=== PATIENT | male | born 1945 | race African-American/Black ===

== ENCOUNTER 2018-06-08 07:31 | Inpatient (IN) | payer MEDICARE, MEDICAID ==
[~2018-06-08] VITALS: Ht 172.7 cm; Wt 84.8 kg
[~2018-06-08 07:31] MED LIST: AMLO10TA80 PO; ATOR20TA65 PO
[2018-06-08] MEDS ORDERED: LACTATED RINGERS 1,000 ML IV SCH (11:15)
[2018-06-08] MEDS ORDERED: PROPOFOL 200MG/20ML VIAL IV ONE (12:29)
[2018-06-08] MEDS ORDERED: GLYCOPYRROLATE 0.2 MG/ML 2ML VIAL ONE (12:29)
[2018-06-08] MEDS ORDERED: SUCCINYLCHOLINE CHLORIDE 200MG/10ML IV ONE (12:29)
[2018-06-08] MEDS ORDERED: LIDOCAINE HCL/PF 1% 10 MG/ML 5ML VIAL ONE (12:29)
[2018-06-08] MEDS ORDERED: ONDANSETRON HCL 4MG/2ML INJ ONE (12:29)
[2018-06-08] MEDS ORDERED: MIDAZOLAM HCL 2 MG/2 ML VIAL ONE (12:29)
[2018-06-08] MEDS ORDERED: FENTANYL CITRATE/PF 50MCG/ML 2ML VIAL ONE ×2 (12:29→13:00)
[2018-06-08] MEDS ORDERED: METOCLOPRAMIDE HCL 10MG/2ML VIAL ONE (12:29)
[2018-06-08] MEDS ORDERED: HYDROCODONE/ACETAMINOPHEN 10/325MG TABLET PO PRN (13:30)
[2018-06-08] MEDS ORDERED: MAGNESIUM HYDROXIDE 400MG/5ML 30ML UDC PO PRN (13:30)
[2018-06-08] MEDS ORDERED: HYDROCODONE/ACETAMINOPHEN 5/325MG TABLET PO PRN (13:30)
[2018-06-08] MEDS ORDERED: LORAZEPAM 1MG TABLET PO PRN (13:30)
[2018-06-08] MEDS ORDERED: CEFAZOLIN SODIUM 1000MG/VIAL IV SCH (14:00)
[2018-06-08 21:37] VITALS: BP 112/58
[2018-06-09] VITALS: BP 102/48
[2018-06-09] MEDS: CEFAZOLIN 1000MG PREMIX 50 ML IV SCH ×2 (00:26→09:14)
[2018-06-09 04:00] VITALS: BP 102/47
[2018-06-09 06:28] LABS: BASOPHILS % 0.2 % (0.0-2.0); EOSINOPHILS % 0.7 % (0.0-5.0); HEMATOCRIT. 32.9 % (42.0-52.0); LYMPHOCYTES % 16.3 % (20.0-50.0); MEAN CORPUSCULAR HEMOGLOBIN 30.8 pg (28.0-32.0); MEAN CORPUSCULAR VOLUME 92.5 fL (80.0-94.0); MEAN PLATELET VOLUME 7.4 fl (7.4-10.4); MONOCYTES % 7.1 % (2.0-8.0); NEUTROPHILS % 75.7 % (40.0-76.0); PLATELET 207 x1000/uL (130-400); RED BLOOD CELL COUNT 3.55 mill/uL (4.7-6.1); RED CELL DISTRIBUTION WIDTH 15.7 % (11.6-14.6)
[2018-06-09 06:51] LABS: CHLORIDE 107 mEq/L (98-107)
[2018-06-09 08:00] VITALS: BP 92/52
[2018-06-09] MEDS ORDERED: AMLODIPINE 10MG TABLET PO SCH (09:00)
[2018-06-09] MEDS ORDERED: LEVOFLOXACIN 500MG TABLET PO SCH (11:00)
[2018-06-09] MEDS ORDERED: LEVOFLOXACIN 500MG TABLET PO NR (11:00)
[2018-06-09] MEDS ORDERED: ACETAMINOPHEN 325MG TABLET PO PRN (12:45)
[2018-06-09 20:00] VITALS: BP 78/60
[2018-06-10] VITALS: BP 106/39
[2018-06-10 04:00] VITALS: BP 125/46
[2018-06-10 07:59] LABS: BASOPHILS % 0.1 % (0.0-2.0); EOSINOPHILS % 1.5 % (0.0-5.0); HEMATOCRIT. 34.8 % (42.0-52.0); HEMOGLOBIN. 11.3 g/dL (14.0-18.0); LYMPHOCYTES % 24.3 % (20.0-50.0); MEAN CORPUSCULAR HEMOGLOBIN 30.3 pg (28.0-32.0); MEAN CORPUSCULAR VOLUME 93.3 fL (80.0-94.0); MEAN PLATELET VOLUME 7.7 fl (7.4-10.4); MONOCYTES % 9.8 % (2.0-8.0); NEUTROPHILS % 64.3 % (40.0-76.0); PLATELET 185 x1000/uL (130-400); RED BLOOD CELL COUNT 3.73 mill/uL (4.7-6.1); RED CELL DISTRIBUTION WIDTH 15.9 % (11.6-14.6)
[2018-06-10 08:21] VITALS: BP 129/55
[2018-06-10 09:50] LABS: CHLORIDE 105 mEq/L (98-107)
[2018-06-10 09:51] VITALS: BP 121/72
== END 2018-06-10 10:58 | disposition home or self-care (01) | DRG 713 ==
LOC: OR 07:31 → 6WST 13:22
PROVIDERS: ADMIT Urology; ATTEND Urology
PROC: 0VT08ZZ Resection of Prostate, Via Natural or Artificial Opening Endoscopic (ICD-10-PCS; principal; 2018-06-08)
DX: N40.1 Benign prostatic hyperplasia with lower urinary tract symptoms (principal); N13.8 Other obstructive and reflux uropathy; J44.9 Chronic obstructive pulmonary disease, unspecified; I10 Essential (primary) hypertension; E78.00 Pure hypercholesterolemia, unspecified; M46.90 Unspecified inflammatory spondylopathy, site unspecified; N32.89 Other specified disorders of bladder; I48.91 Unspecified atrial fibrillation; I49.1 Atrial premature depolarization; Z87.891 Personal history of nicotine dependence; Z95.1 Presence of aortocoronary bypass graft
CPT/HCPCS: 36415; 71045; 80048; 83735; 88305; 93005; J0330; J0690; J2250; J2405; J2704; J2765; J3010; J3490; J7040

== ENCOUNTER → 2019-12-20 | Outpatient (CLI) | payer MEDICARE, MEDICAID | END | disposition home or self-care (01) | LOC: MRI 10:23 | PROVIDERS: ATTEND Neurological Surgery | DX: M47.812 Spondylosis without myelopathy or radiculopathy, cervical region (principal); M48.02 Spinal stenosis, cervical region; M48.03 Spinal stenosis, cervicothoracic region; G95.89 Other specified diseases of spinal cord; Z98.1 Arthrodesis status | CPT/HCPCS: 72141 ==

== ENCOUNTER 2020-03-21 14:41 | Inpatient (IN) | payer MEDICARE, MEDICAID ==
[~2020-03-21] VITALS: Ht 172.7 cm; Wt 83.0 kg
[2020-03-21] MEDS ORDERED: ACETAMINOPHEN 325MG TABLET PO STA (15:26)
[2020-03-21] MEDS ORDERED: SODIUM CHLORIDE 0.9% 1000ML BAG (SEPSIS BOLUS) IV ONE (15:45)
[2020-03-21] MEDS ORDERED: LEVOFLOXACIN 750MG PREMIX 150 ML IV ONE (15:45)
[2020-03-21 16:42] LABS: BASOPHILS % 0.2 % (0.0-2.0); EOSINOPHILS % 0.1 % (0.0-5.0); HEMATOCRIT. 39.3 % (42.0-52.0); HEMOGLOBIN. 12.8 g/dL (14.0-18.0); LYMPHOCYTES % 7.9 % (20.0-50.0); MEAN CORPUSCULAR HEMOGLOBIN 30.5 pg (28.0-32.0); MEAN CORPUSCULAR VOLUME 93.8 fL (80.0-94.0); MEAN PLATELET VOLUME 7.2 fl (7.4-10.4); MONOCYTES % 4.6 % (2.0-8.0); NEUTROPHILS % 87.2 % (40.0-76.0); PLATELET 226 x1000/uL (130-400); RED BLOOD CELL COUNT 4.19 mill/uL (4.7-6.1); RED CELL DISTRIBUTION WIDTH 17.5 % (11.6-14.6)
[2020-03-21 16:47] LABS: CHLORIDE 107 mEq/L (98-107)
[2020-03-21 18:42] LABS: CLARITY URINE CLEAR (CLEAR); COLOR URINE YELLOW (YELLOW); KETONES URINE NEGATIVE (NEGATIVE); LEUKOCYTE ESTERASE URINE 2+ (NEGATIVE); NITRITE URINE POSITIVE (NEGATIVE); OCCULT BLOOD URINE 1+ (NEGATIVE); PH URINE 5.5 (4.5-8.0); PROTEIN URINE TRACE (NEGATIVE); SPECIFIC GRAVITY URINE 1.019 (1.005-1.030); UROBILINOGEN URINE 0.2 E.U./dL (0.2-1.0)
[2020-03-21] MEDS ORDERED: SODIUM CHLORIDE 0.9% 500 ML IV ONE (21:00)
[2020-03-21 21:20] VITALS: BP 107/59
[2020-03-21 21:30] VITALS: BP 108/59
[2020-03-21] MEDS ORDERED: ACETAMINOPHEN 325MG TABLET PO PRN (22:00)
[2020-03-21] MEDS ORDERED: ONDANSETRON HCL 4MG/2ML INJ IV PRN (22:00)
[2020-03-21] MEDS ORDERED: CEFTRIAXONE 1 G PREMIX 50 ML IV SCH (22:00)
[2020-03-21] MEDS ORDERED: IPRATROPIUM/ALBUTEROL 0.5-3(2.5)MG/3ML NEB NEB PRN (22:00)
[2020-03-21] MEDS ORDERED: DOCUSATE SODIUM 100MG CAPSULE PO PRN (22:00)
[2020-03-21] MEDS ORDERED: MAGNESIUM/ALUMINUM HYDROXIDE/SIMETHICONE 30ML UDC PO PRN (22:00)
[2020-03-21] MEDS ORDERED: CLONIDINE 0.1MG TABLET PO PRN (22:00)
[2020-03-21] MEDS ORDERED: HYDROCODONE/ACETAMINOPHEN 5/325MG TABLET PO PRN (22:00)
[2020-03-21 23:48] LABS: *AMPHETAMINES SCREEN URINE NEGATIVE (NEGATIVE); *BARBITURATES SCREEN URINE NEGATIVE (NEGATIVE); *BENZODIAZEPINES SCREEN URINE NEGATIVE (NEGATIVE); *COCAINE SCREEN URINE NEGATIVE (NEGATIVE); METHADONE URINE SCREEN NEGATIVE (NEGATIVE); OPIATES URINE SCREEN NEGATIVE (NEGATIVE)
[2020-03-21 23:49] LABS: CANNABINOID URINE SCREEN NEGATIVE (NEGATIVE); PHENCYCLIDINE URINE SCREEN NEGATIVE (NEGATIVE)
[2020-03-22] VITALS: BP 138/73
[2020-03-22] MEDS: AZITHROMYCIN 500 MG in DEXT 5% WATER 250 ML IV SCH ×2 (00:03→22:00)
[2020-03-22 00:20] LABS: CHLORIDE 107 mEq/L (98-107)
[2020-03-22 00:29] LABS: CREATINE KINASE 297 IU/L (39-308)
[2020-03-22 00:32] LABS: CREATINE KINASE MB FRACTION 1.6 ng/mL (0.5-3.6)
[2020-03-22] MEDS ORDERED: ATOR10TA69 PO (01:14)
[2020-03-22] MEDS ORDERED: AMLO5TAB88 PO (01:14)
[2020-03-22 04:00] VITALS: BP 122/57
[2020-03-22 08:00] VITALS: BP 101/48
[2020-03-22] MEDS: CEFTRIAXONE 1,000 MG in DEXTROSE 5% WATER 50 ML IV SCH (09:11)
[2020-03-22] MEDS: ENOXAPARIN 40MG/0.4ML SYR SUBCUT SCH (09:11)
[2020-03-22 09:37] LABS: BASOPHILS % 0.4 % (0.0-2.0); EOSINOPHILS % 0.4 % (0.0-5.0); HEMATOCRIT. 35.5 % (42.0-52.0); HEMOGLOBIN. 11.6 g/dL (14.0-18.0); LYMPHOCYTES % 24.7 % (20.0-50.0); MEAN CORPUSCULAR HEMOGLOBIN 30.4 pg (28.0-32.0); MEAN CORPUSCULAR VOLUME 93.5 fL (80.0-94.0); MEAN PLATELET VOLUME 6.7 fl (7.4-10.4); MONOCYTES % 10.3 % (2.0-8.0); NEUTROPHILS % 64.2 % (40.0-76.0); PLATELET 189 x1000/uL (130-400)
[2020-03-22 09:52] LABS: LDL CHOLESTEROL 51 mg/dL (5-100)
[2020-03-22 09:55] LABS: CREATINE KINASE 332 IU/L (39-308); CREATINE KINASE MB FRACTION 1.6 ng/mL (0.5-3.6); HDL CHOLESTEROL 49 mg/dL (40-59)
[2020-03-22 12:00] VITALS: BP 95/50
[2020-03-22] MEDS: ALBUTEROL 6.7GM HFA INHALER ORI SCH ×2 (12:00→18:00)
[2020-03-22 16:30] VITALS: BP 130/52
[2020-03-22 20:15] VITALS: BP 114/40
[2020-03-23] VITALS: BP 115/59
[2020-03-23 04:00] VITALS: BP 126/70
[2020-03-23] MEDS: ALBUTEROL 6.7GM HFA INHALER ORI SCH ×4 (05:51→17:57)
[2020-03-23 08:00] VITALS: BP 108/63
[2020-03-23] MEDS: CEFTRIAXONE 1,000 MG in DEXTROSE 5% WATER 50 ML IV SCH (08:00)
[2020-03-23] MEDS: ENOXAPARIN 40MG/0.4ML SYR SUBCUT SCH (09:00)
[2020-03-23 12:00] VITALS: BP 127/52
[2020-03-23 16:00] VITALS: BP 124/55
[2020-03-23 19:48] VITALS: BP 115/61
[2020-03-23] MEDS: AZITHROMYCIN 500 MG in DEXT 5% WATER 250 ML IV SCH (22:51)
[2020-03-24 00:22] VITALS: BP 111/67
[2020-03-24] MEDS ORDERED: ALBUTEROL (0.083%) 2.5MG/3ML NEB HHN SCH (01:00)
[2020-03-24 03:56] VITALS: BP 106/58
[2020-03-24 06:27] LABS: BASOPHILS % 0.3 % (0.0-2.0); EOSINOPHILS % 2.7 % (0.0-5.0); HEMATOCRIT. 37.5 % (42.0-52.0); HEMOGLOBIN. 12.2 g/dL (14.0-18.0); LYMPHOCYTES % 28.1 % (20.0-50.0); MEAN CORPUSCULAR HEMOGLOBIN 30.3 pg (28.0-32.0); MEAN CORPUSCULAR VOLUME 93.3 fL (80.0-94.0); MEAN PLATELET VOLUME 7.1 fl (7.4-10.4); NEUTROPHILS % 59.9 % (40.0-76.0); PLATELET 214 x1000/uL (130-400); RED BLOOD CELL COUNT 4.02 mill/uL (4.7-6.1)
[2020-03-24 06:37] LABS: CHLORIDE 107 mEq/L (98-107)
[2020-03-24 08:09] VITALS: BP 135/57
[2020-03-24] MEDS: ENOXAPARIN 40MG/0.4ML SYR SUBCUT SCH (09:09)
[2020-03-24] MEDS: CEFTRIAXONE 1,000 MG in DEXTROSE 5% WATER 50 ML IV SCH (09:09)
[2020-03-24 12:00] VITALS: BP 106/45
[2020-03-24 16:08] VITALS: BP 115/48
[2020-03-28 04:12] LABS: INFLUENZA A AB CF 1:32 (Neg:<1:8)
== END 2020-03-24 19:05 | disposition home or self-care (01) | DRG 871 ==
LOC: ER 14:41 → 7EST 17:22 → ENRESERV 20:21 → 5WST 03-22 16:39
PROVIDERS: ADMIT Internal Medicine; ATTEND Internal Medicine
DX: A41.51 Sepsis due to Escherichia coli [E. coli] (principal); J18.9 Pneumonia, unspecified organism; J96.01 Acute respiratory failure with hypoxia; N39.0 Urinary tract infection, site not specified; J44.0 Chronic obstructive pulmonary disease with (acute) lower respiratory infection; Z20.828 Contact with and (suspected) exposure to other viral communicable diseases; E78.00 Pure hypercholesterolemia, unspecified; E78.5 Hyperlipidemia, unspecified; I10 Essential (primary) hypertension; N40.0 Benign prostatic hyperplasia without lower urinary tract symptoms; Z82.49 Family history of ischemic heart disease and other diseases of the circulatory system; Z79.899 Other long term (current) drug therapy
CPT/HCPCS: 36415; 71045; 80048; 80053; 80061; 80305; 81003; 82550; 82553; 82728; 83605; 83615; 83735; 84443; 84484; 85025; 85379; 86140; 86710; 87077; 87186; 87635; 93005; 93970; 99285; C1893; J0456; J0696; J1650; J1956; J7030; J7040; J7060

== ENCOUNTER 2022-07-01 15:49 | Inpatient (IN) | payer MEDICARE, MEDICAID ==
[~2022-07-01] VITALS: Ht 213.4 cm; Wt 72.6 kg
[~2022-07-01 15:49] MED LIST changes: -AMLO10TA80 PO; +AMLO5TAB88 PO; +ATOR10TA69 PO; -ATOR20TA65 PO
[2022-07-01] MEDS ORDERED: ACETAMINOPHEN 325MG TABLET PO STA (22:25)
[2022-07-01 23:02] LABS: HEMATOCRIT. 41.5 % (42.0-52.0); HEMOGLOBIN. 13.6 g/dL (14.0-18.0); MEAN CORPUSCULAR HEMOGLOBIN 30.8 pg (28.0-32.0); MEAN CORPUSCULAR VOLUME 93.9 fL (80.0-94.0); MEAN PLATELET VOLUME 7.2 fl (7.4-10.4); PLATELET 193 x1000/uL (130-400); RED BLOOD CELL COUNT 4.42 mill/uL (4.7-6.1); RED CELL DISTRIBUTION WIDTH 17.3 % (11.6-14.6)
[2022-07-01 23:08] LABS: INR 1.1; PROTHROMBIN TIME 11.7 sec (9.6-11.0)
[2022-07-01 23:10] LABS: CHLORIDE 102 mEq/L (98-107)
[2022-07-01 23:25] LABS: PLATELET ESTIMATE NORMAL
[2022-07-02] MEDS ORDERED: DIPHENHYDRAMINE 50MG/ML VIAL IV PRN (02:15)
[2022-07-02] MEDS ORDERED: HYDROCODONE/ACETAMINOPHEN 5/325MG TABLET PO PRN (02:15)
[2022-07-02] MEDS ORDERED: ACETAMINOPHEN 325MG TABLET PO PRN ×2 (02:15)
[2022-07-02] MEDS ORDERED: ONDANSETRON HCL 4MG/2ML INJ IV PRN (02:15)
[2022-07-02] MEDS ORDERED: MAGNESIUM/ALUMINUM HYDROXIDE/SIMETHICONE 30ML UDC PO PRN (02:15)
[2022-07-02] MEDS ORDERED: CLONIDINE 0.1MG TABLET PO PRN (02:15)
[2022-07-02] MEDS ORDERED: ZOLPIDEM TARTRATE 5MG TABLET PO PRN (02:15)
[2022-07-02] MEDS ORDERED: MAGNESIUM HYDROXIDE 400MG/5ML 30ML UDC PO PRN (02:15)
[2022-07-02] MEDS: SODIUM CHLORIDE 0.9% INJ 3ML FLUSH IVF SCH ×3 (06:06→23:35)
[2022-07-02] MEDS: OMEPRAZOLE 20MG CAPSULE EXTENDED RELEASE PO SCH ×2 (07:27→23:35)
[2022-07-02 08:51] LABS: CLARITY URINE CLEAR (CLEAR); COLOR URINE YELLOW (YELLOW); KETONES URINE NEGATIVE (NEGATIVE); LEUKOCYTE ESTERASE URINE NEGATIVE (NEGATIVE); NITRITE URINE NEGATIVE (NEGATIVE); OCCULT BLOOD URINE 2+ (NEGATIVE); PROTEIN URINE 1+ (NEGATIVE); SPECIFIC GRAVITY URINE 1.019 (1.005-1.030)
[2022-07-02] MEDS: ENOXAPARIN 40MG/0.4ML SYR SUBCUT SCH (09:26)
[2022-07-02] MEDS ORDERED: NALOXONE HCL 0.4MG/ML VIAL IV PRN (14:00)
[2022-07-02 14:04] VITALS: BP 128/80
[2022-07-02 16:00] VITALS: BP 112/57
[2022-07-02 20:00] VITALS: BP 104/65
[2022-07-03] VITALS: BP 116/66
[2022-07-03 04:00] VITALS: BP 109/64
[2022-07-03] MEDS: SODIUM CHLORIDE 0.9% INJ 3ML FLUSH IVF SCH ×3 (06:02→22:00)
[2022-07-03] MEDS: OMEPRAZOLE 20MG CAPSULE EXTENDED RELEASE PO SCH (06:02)
[2022-07-03 08:53] VITALS: BP 94/47
[2022-07-03] MEDS: ENOXAPARIN 40MG/0.4ML SYR SUBCUT SCH (09:10)
[2022-07-03 12:00] VITALS: BP 115/83
[2022-07-03 16:00] VITALS: BP 120/51
[2022-07-03] MEDS: FAMOTIDINE 20MG TABLET PO SCH (21:37)
[2022-07-04] MEDS: SODIUM CHLORIDE 0.9% INJ 3ML FLUSH IVF SCH ×2 (06:00→14:00)
[2022-07-04] MEDS: FAMOTIDINE 20MG TABLET PO SCH (08:36)
[2022-07-04] MEDS: ENOXAPARIN 40MG/0.4ML SYR SUBCUT SCH (08:36)
[2022-07-04 12:00] VITALS: BP 113/57
[2022-07-04 14:00] VITALS: BP 113/57
== END 2022-07-04 15:05 | disposition home or self-care (01) | DRG 552 ==
LOC: ER 15:52 → MICUSO 23:44 → EDBEDREQ 23:49 → 6EST 07-02 13:42
PROVIDERS: ADMIT Internal Medicine; ATTEND Internal Medicine
DX: M47.814 Spondylosis without myelopathy or radiculopathy, thoracic region (principal); G82.20 Paraplegia, unspecified; G95.89 Other specified diseases of spinal cord; I10 Essential (primary) hypertension; E78.00 Pure hypercholesterolemia, unspecified; M48.02 Spinal stenosis, cervical region; M48.04 Spinal stenosis, thoracic region; M48.061 Spinal stenosis, lumbar region without neurogenic claudication; G89.29 Other chronic pain; Z98.1 Arthrodesis status
CPT/HCPCS: 36415; 70551; 71045; 72141; 72146; 72148; 80053; 81003; 84484; 85025; 93005; 97162; 97530; 99285; J1650